=== PATIENT | male | born 1950 | race Hispanic/Latino ===

== ENCOUNTER → 2018-11-17 | Outpatient (CLI) | payer OTHER | END | disposition home or self-care (01) | LOC: OIH 11-05 09:17 | PROVIDERS: ATTEND Internal Medicine | DX: I10 Essential (primary) hypertension (principal); I70.0 Atherosclerosis of aorta; K44.9 Diaphragmatic hernia without obstruction or gangrene | CPT/HCPCS: 71046 ==

== ENCOUNTER → 2019-06-15 | Outpatient (CLI) | payer OTHER | END | disposition home or self-care (01) | LOC: OIH 11:08 | PROVIDERS: ATTEND Internal Medicine | DX: K44.9 Diaphragmatic hernia without obstruction or gangrene (principal) | CPT/HCPCS: 71046 ==

== ENCOUNTER → 2020-08-19 | Outpatient (CLI) | payer OTHER | END | disposition home or self-care (01) | LOC: RAH 12:26 | PROVIDERS: ATTEND Internal Medicine | DX: K44.9 Diaphragmatic hernia without obstruction or gangrene (principal); J98.11 Atelectasis; R16.0 Hepatomegaly, not elsewhere classified; N20.0 Calculus of kidney; K42.9 Umbilical hernia without obstruction or gangrene; M47.814 Spondylosis without myelopathy or radiculopathy, thoracic region; M47.816 Spondylosis without myelopathy or radiculopathy, lumbar region; R10.9 Unspecified abdominal pain; Z90.49 Acquired absence of other specified parts of digestive tract | CPT/HCPCS: 74176 ==

== ENCOUNTER 2020-11-06 11:19 | Emergency (ER) | payer OTHER ==
[2020-11-06] MEDS ORDERED: HYDROCODONE/ACETAMINOPHEN 10/325 MG TAB ONE (12:47)
== END 2020-11-06 14:37 | disposition home or self-care (01) ==
LOC: EDH 11:19
DX: M54.41 Lumbago with sciatica, right side (principal); E11.9 Type 2 diabetes mellitus without complications; E78.00 Pure hypercholesterolemia, unspecified; Z72.0 Tobacco use
CPT/HCPCS: 72100

== ENCOUNTER 2020-12-09 20:21 | Emergency (ER) | payer OTHER ==
[2020-12-09] MEDS ORDERED: KETOROLAC 30MG VIAL (30MG/ML) ONE (21:19)
[2020-12-09] MEDS ORDERED: ORPHENADRINE CITRATE 30 MG/ML ML ONE (21:19)
[2020-12-09] MEDS ORDERED: LIDOCAINE 5% TOPICAL PATCH TP ONE (21:19)
== END 2020-12-09 21:51 | disposition home or self-care (01) ==
LOC: EDH 20:21
DX: M54.5 Low back pain (principal); M62.830 Muscle spasm of back; M54.30 Sciatica, unspecified side; E78.00 Pure hypercholesterolemia, unspecified; E11.9 Type 2 diabetes mellitus without complications
CPT/HCPCS: 96372 ×2; 99284; J1885; J2360

== ENCOUNTER → 2021-03-20 | Outpatient (CLI) | payer OTHER ==
[2021-03-20 08:36] LABS: BASOPHILS % (AUTO) 0.6 % (0.0-5.0); EOSINOPHILS % (AUTO) 3.8 % (0.0-8.0); HEMATOCRIT 39.8 % (42-54); LYMPHOCYTES % (AUTO) 26.3 % (21.0-51.0); MEAN CORPUSCULAR HGB CONC 32.9 g/dL (32.0-36.0); MEAN CORPUSCULAR VOLUME 97.3 fL (79-99); MONOCYTES % (AUTO) 9.1 % (3.0-13.0); NEUTROPHILS % (AUTO) 59.8 % (40.0-77.0); PLATELET COUNT (AUTO) 144 K/uL (130-400); RED BLOOD CELL COUNT(AUTO) 4.09 MIL/uL (4.50-6.20); RED CELL DISTRIBUTION WIDTH 13.2 % (11.0-15.5); WHITE BLOOD COUNT (AUTO) 7.8 K/uL (4.8-10.8)
[2021-03-20 08:46] LABS: INR 1.04 (0.85-1.15); PROTHROMBIN TIME 11.3 SEC (9.6-11.6)
[2021-03-20 09:06] LABS: ALBUMIN 3.6 g/dL (3.5-5.0); BILIRUBIN,TOTAL 0.5 mg/dL (0.2-1.0); CREATININE 0.7 mg/dL (0.5-1.5); POTASSIUM 4.9 mmol/L (3.5-5.1); TOTAL PROTEIN, SERUM 7.4 g/dL (6.0-8.3)
== END | disposition home or self-care (01) ==
LOC: LAB 10:00
PROVIDERS: ATTEND Internal Medicine Gastroenterology
DX: K74.69 Other cirrhosis of liver (principal)
CPT/HCPCS: 36415; 80053; 85025; 85610

== ENCOUNTER → 2021-04-03 | Outpatient (CLI) | payer OTHER ==
[~2021-04-03] MED LIST: IOHEXOL-350 75 ML VIAL IV ONE
== END | disposition home or self-care (01) ==
LOC: RAH 09:12
PROVIDERS: ATTEND Internal Medicine Gastroenterology
DX: K74.69 Other cirrhosis of liver (principal); R77.2 Abnormality of alphafetoprotein; Z90.49 Acquired absence of other specified parts of digestive tract; K44.9 Diaphragmatic hernia without obstruction or gangrene
CPT/HCPCS: 74170; Q9967

== ENCOUNTER 2021-08-18 09:40 | Inpatient (IN) | payer OTHER ==
[2021-08-18] VITALS (17 sets, daily range): BP systolic 140–181; BP diastolic 67–99
[~2021-08-18] VITALS: Ht 165.1 cm; Wt 64.7 kg
[2021-08-18 10:42] LABS: BASOPHILS % (AUTO) 0.3 % (0.0-5.0); EOSINOPHILS % (AUTO) 0.8 % (0.0-8.0); HEMATOCRIT 35.7 % (42-54); LYMPHOCYTES % (AUTO) 12.5 % (21.0-51.0); MEAN CORPUSCULAR HEMOGLOBIN 31.9 pg (27.0-33.0); MEAN CORPUSCULAR HGB CONC 34.2 g/dL (32.0-36.0); MEAN CORPUSCULAR VOLUME 93.2 fL (79-99); MONOCYTES % (AUTO) 11.3 % (3.0-13.0); NEUTROPHILS % (AUTO) 74.5 % (40.0-77.0); PLATELET COUNT (AUTO) 160 K/uL (130-400); RED BLOOD CELL COUNT(AUTO) 3.83 MIL/uL (4.50-6.20); RED CELL DISTRIBUTION WIDTH 12.8 % (11.0-15.5); WHITE BLOOD COUNT (AUTO) 10.7 K/uL (4.8-10.8)
[2021-08-18 11:04] LABS: ALBUMIN 3.6 g/dL (3.5-5.0); BILIRUBIN,TOTAL 0.6 mg/dL (0.2-1.0); CREATININE 0.9 mg/dL (0.5-1.5); POTASSIUM 4.8 mmol/L (3.5-5.1); TOTAL PROTEIN, SERUM 7.3 g/dL (6.0-8.3)
[2021-08-18] MEDS ORDERED: 0.9%NACL 50ML 50 ML IV ONE (12:18)
[2021-08-18] MEDS: ZOSYN 3.375GM +NS 50ML IV SCH ×2 (12:29→14:39)
[2021-08-18] MEDS ORDERED: ACETAMINOPHEN 325 MG TAB PO PRN ×2 (13:30)
[2021-08-18] MEDS ORDERED: VANCOMYCIN PROTOCOL PER PHARMACY IV SCH (14:00)
[2021-08-18 14:21] LABS: HEMOGLOBIN A1C 7.3 % (4.0-6.0)
[2021-08-18] MEDS: CEFEPIME HCL 2 GM VIAL IVP SCH ×2 (14:52→22:01)
[2021-08-18] MEDS: METRONIDAZOLE 500MG/100ML BAG 100 ML IVPB SCH ×2 (14:52→22:01)
[2021-08-18] MEDS: VANCOMYCIN 1G/250ML KIT 250 ML IV SCH (15:24)
[2021-08-18] MEDS: INSULIN HUMULIN R 100 UNIT/ML 3ML SQ SCH ×2 (16:30→20:17)
[2021-08-18] MEDS ORDERED: KETOROLAC 15MG/ML VIAL (15MG/ML) IV SCH (16:30)
[2021-08-18] MEDS ORDERED: BUPIVACAINE/PF 0.5% 30ML VIAL ONE (18:40)
[2021-08-18] MEDS ORDERED: LIDOCAINE HCL 1% 20 ML VIAL ONE (18:40)
[2021-08-18] MEDS ORDERED: MIDAZOLAM HCL 1 MG/ML 2ML VIAL ONE (18:50)
[2021-08-18] MEDS ORDERED: FENTANYL CITRATE PF 50 MCG/1 ML 2ML VIAL ONE (18:50)
[2021-08-18] MEDS: FAMOTIDINE 20MG VIAL IV SCH (22:01)
[2021-08-18] MEDS: INSULIN GLARGINE 100 UNITS/ML 10 ML VIAL SQ SCH (22:08)
[2021-08-19] MEDS ORDERED: 0.9% NACL 250ML 250 ML ONE (02:30)
[2021-08-19] MEDS: VANCOMYCIN 1G/250ML KIT 250 ML IV SCH ×2 (02:51→14:31)
[2021-08-19 03:38] VITALS: BP 142/63
[2021-08-19] MEDS: ZOSYN 3.375GM +NS 50ML IV SCH (04:42)
[2021-08-19 05:06] LABS: HEMATOCRIT 34.9 % (42-54); MEAN CORPUSCULAR HEMOGLOBIN 32.2 pg (27.0-33.0); MEAN CORPUSCULAR HGB CONC 35.2 g/dL (32.0-36.0); MEAN CORPUSCULAR VOLUME 91.4 fL (79-99); RED BLOOD CELL COUNT(AUTO) 3.82 MIL/uL (4.50-6.20); RED CELL DISTRIBUTION WIDTH 12.7 % (11.0-15.5); WHITE BLOOD COUNT (AUTO) 10.2 K/uL (4.8-10.8)
[2021-08-19] MEDS: CEFEPIME HCL 2 GM VIAL IVP SCH ×3 (05:18→22:43)
[2021-08-19] MEDS: METRONIDAZOLE 500MG/100ML BAG 100 ML IVPB SCH ×3 (05:18→22:44)
[2021-08-19 05:28] LABS: CREATININE 0.8 mg/dL (0.5-1.5); POTASSIUM 4.3 mmol/L (3.5-5.1)
[2021-08-19 07:20] VITALS: BP 175/85
[2021-08-19] MEDS: INSULIN HUMULIN R 100 UNIT/ML 3ML SQ SCH ×4 (07:30→21:00)
[2021-08-19] MEDS: FAMOTIDINE 20MG VIAL IV SCH ×2 (09:49→22:42)
[2021-08-19] MEDS: HYDRALAZINE 20MG/ML VIAL IV PRN (09:49)
[2021-08-19] MEDS: GABAPENTIN 300 MG CAPSULE PO SCH ×3 (09:50→22:41)
[2021-08-19] MEDS: ACETAMINOPHEN WITH CODEINE 1 TAB TAB PO PRN (09:51)
[2021-08-19] MEDS: ENOXAPARIN SODIUM 40 MG/0.4 ML SYRINGE SQ SCH (09:54)
[2021-08-19 11:15] VITALS: BP 143/74
[2021-08-19] MEDS: MORPHINE 2 MG SYG IVP PRN (11:22)
[2021-08-19] MEDS ORDERED: HYDROXYZINE 25 MG TABLET PO PRN (14:00)
[2021-08-19 15:10] VITALS: BP 156/75
[2021-08-19 19:56] VITALS: BP 123/78
[2021-08-19] MEDS: MIRTAZAPINE 15 MG TABLET PO SCH (22:41)
[2021-08-19] MEDS: INSULIN GLARGINE 100 UNITS/ML 10 ML VIAL SQ SCH (23:05)
[2021-08-19 23:29] LABS: AMPHET/METH SCREEN,URINE NEGATIVE (NEGATIVE); BARBITURATE SCREEN, URINE NEGATIVE (NEGATIVE); BENZODIAZEPINES SCREEN,URINE POSITIVE (NEGATIVE); CANNABINOID SCREEN,URINE POSITIVE (NEGATIVE); COCAINE SCREEN,URINE NEGATIVE (NEGATIVE); OPIATE SCREEN,URINE POSITIVE (NEGATIVE); PHENCYCLIDINE SCREEN,URINE NEGATIVE (NEGATIVE)
[2021-08-19 23:45] VITALS: BP 167/81
[2021-08-20] VITALS (8 sets, daily range): BP systolic 130–185; BP diastolic 62–91
[2021-08-20] MEDS ORDERED: 0.9% NACL 250ML 250 ML ONE (02:03)
[2021-08-20] MEDS: VANCOMYCIN 1G/250ML KIT 250 ML IV SCH ×2 (02:08→14:53)
[2021-08-20] MEDS: MORPHINE 2 MG SYG IVP PRN ×3 (02:14→11:00)
[2021-08-20 04:35] LABS: HEMATOCRIT 35.3 % (42-54); MEAN CORPUSCULAR HEMOGLOBIN 31.9 pg (27.0-33.0); MEAN CORPUSCULAR HGB CONC 34.6 g/dL (32.0-36.0); MEAN CORPUSCULAR VOLUME 92.4 fL (79-99); RED BLOOD CELL COUNT(AUTO) 3.82 MIL/uL (4.50-6.20); RED CELL DISTRIBUTION WIDTH 12.7 % (11.0-15.5); WHITE BLOOD COUNT (AUTO) 9.3 K/uL (4.8-10.8)
[2021-08-20 04:44] LABS: CREATININE 0.8 mg/dL (0.5-1.5); POTASSIUM 3.2 mmol/L (3.5-5.1)
[2021-08-20] MEDS: ACETAMINOPHEN WITH CODEINE 1 TAB TAB PO PRN ×3 (05:23→17:27)
[2021-08-20] MEDS: CEFEPIME HCL 2 GM VIAL IVP SCH ×3 (05:23→21:48)
[2021-08-20] MEDS: METRONIDAZOLE 500MG/100ML BAG 100 ML IVPB SCH ×3 (05:23→21:54)
[2021-08-20] MEDS: INSULIN HUMULIN R 100 UNIT/ML 3ML SQ SCH ×4 (06:01→21:00)
[2021-08-20] MEDS: VENLAFAXINE HCL XR 37.5 MG CAP PO SCH (08:15)
[2021-08-20] MEDS: FAMOTIDINE 20MG VIAL IV SCH ×2 (08:15→21:48)
[2021-08-20] MEDS: HYDRALAZINE 20MG/ML VIAL IV PRN ×2 (08:16→17:28)
[2021-08-20] MEDS: ENOXAPARIN SODIUM 40 MG/0.4 ML SYRINGE SQ SCH (08:16)
[2021-08-20] MEDS: GABAPENTIN 300 MG CAPSULE PO SCH ×3 (08:16→21:48)
[2021-08-20] MEDS ORDERED: MORPHINE 2 MG SYG IM SCH (11:00)
[2021-08-20] MEDS ORDERED: GABA600T10 PO (16:26)
[2021-08-20] MEDS ORDERED: ROSU5TAB12 PO (16:29)
[2021-08-20] MEDS ORDERED: AMLODIPINE 5 MG TAB PO ONE (16:30)
[2021-08-20] MEDS ORDERED: INS7030 SQ (16:40)
[2021-08-20] MEDS ORDERED: DULO20CA18 PO (16:41)
[2021-08-20] MEDS ORDERED: LACTULOSE 20 GM/30 ML UDCUP PO PRN (18:00)
[2021-08-20] MEDS: MIRTAZAPINE 15 MG TABLET PO SCH (21:48)
[2021-08-20] MEDS: INSULIN GLARGINE 100 UNITS/ML 10 ML VIAL SQ SCH (22:08)
[2021-08-21] MEDS ORDERED: 0.9% NACL 250ML 250 ML ONE ×2 (02:18→14:18)
[2021-08-21] MEDS: VANCOMYCIN 1G/250ML KIT 250 ML IV SCH ×2 (02:44→14:25)
[2021-08-21 04:05] VITALS: BP 142/76
[2021-08-21 04:39] LABS: HEMATOCRIT 35.9 % (42-54); MEAN CORPUSCULAR HEMOGLOBIN 31.6 pg (27.0-33.0); MEAN CORPUSCULAR HGB CONC 34.5 g/dL (32.0-36.0); MEAN CORPUSCULAR VOLUME 91.6 fL (79-99); RED BLOOD CELL COUNT(AUTO) 3.92 MIL/uL (4.50-6.20); RED CELL DISTRIBUTION WIDTH 12.9 % (11.0-15.5); WHITE BLOOD COUNT (AUTO) 9.9 K/uL (4.8-10.8)
[2021-08-21 04:52] LABS: CREATININE 0.7 mg/dL (0.5-1.5); POTASSIUM 3.1 mmol/L (3.5-5.1)
[2021-08-21 05:37] LABS: BASOPHILS % (AUTO) 0.5 % (0.0-5.0); EOSINOPHILS % (AUTO) 0.6 % (0.0-8.0); HEMATOCRIT 36.8 % (42-54); LYMPHOCYTES % (AUTO) 15.4 % (21.0-51.0); MEAN CORPUSCULAR VOLUME 94.1 fL (79-99); MONOCYTES % (AUTO) 9.4 % (3.0-13.0); NEUTROPHILS % (AUTO) 73.5 % (40.0-77.0); PLATELET COUNT (AUTO) 188 K/uL (130-400); RED BLOOD CELL COUNT(AUTO) 3.91 MIL/uL (4.50-6.20); WHITE BLOOD COUNT (AUTO) 9.9 K/uL (4.8-10.8)
[2021-08-21] MEDS: MORPHINE 2 MG SYG IVP PRN (05:50)
[2021-08-21] MEDS: METRONIDAZOLE 500MG/100ML BAG 100 ML IVPB SCH ×3 (06:38→20:31)
[2021-08-21] MEDS: CEFEPIME HCL 2 GM VIAL IVP SCH ×3 (06:38→20:32)
[2021-08-21] MEDS: INSULIN HUMULIN R 100 UNIT/ML 3ML SQ SCH ×4 (06:39→20:26)
[2021-08-21] MEDS: ONDANSETRON 4MG INJ IV PRN (07:07)
[2021-08-21 07:56] VITALS: BP 157/87
[2021-08-21] MEDS ORDERED: MORPHINE 4 MG SYG IV PRN (09:00)
[2021-08-21] MEDS: VENLAFAXINE HCL XR 37.5 MG CAP PO SCH (09:33)
[2021-08-21] MEDS: AMLODIPINE 5 MG TAB PO SCH (09:34)
[2021-08-21] MEDS: FAMOTIDINE 20MG VIAL IV SCH (09:34)
[2021-08-21] MEDS: ENOXAPARIN SODIUM 40 MG/0.4 ML SYRINGE SQ SCH (09:34)
[2021-08-21] MEDS: GABAPENTIN 300 MG CAPSULE PO SCH ×3 (09:34→20:26)
[2021-08-21 10:58] VITALS: BP 127/64
[2021-08-21] MEDS ORDERED: LISINOPRIL 10 MG TABLET PO SCH (11:00)
[2021-08-21] MEDS: ACETAMINOPHEN WITH CODEINE 1 TAB TAB PO PRN ×3 (11:04→20:27)
[2021-08-21] MEDS: LISINOPRIL 10 MG TABLET PO SCH (11:11)
[2021-08-21] MEDS: KCL 20 MEQ ERTAB PO SCH (11:12)
[2021-08-21] MEDS ORDERED: IOHEXOL 350 MG/ML 100ML INFUS..BTL IV ONE (12:02)
[2021-08-21] MEDS ORDERED: IOHEXOL-350 50ML VIAL IV ONE (12:02)
[2021-08-21 15:39] VITALS: BP 115/72
[2021-08-21] MEDS ORDERED: KCL 20 MEQ ERTAB PO SCH (16:00)
[2021-08-21 20:00] VITALS: BP 122/69
[2021-08-21] MEDS: FAMOTIDINE 20MG TAB PO SCH (20:25)
[2021-08-21] MEDS: MIRTAZAPINE 15 MG TABLET PO SCH (20:26)
[2021-08-21] MEDS: INSULIN GLARGINE 100 UNITS/ML 10 ML VIAL SQ SCH (20:31)
[2021-08-22] VITALS: BP 139/48
[2021-08-22] MEDS: VANCOMYCIN 1G/250ML KIT 250 ML IV SCH ×2 (02:49→15:24)
[2021-08-22 04:00] VITALS: BP 137/73
[2021-08-22 05:46] LABS: CREATININE 0.8 mg/dL (0.5-1.5); CRP QUANTITATIVE 4.6 mg/L (0.00-9.0); POTASSIUM 4.1 mmol/L (3.5-5.1)
[2021-08-22] MEDS: METRONIDAZOLE 500MG/100ML BAG 100 ML IVPB SCH ×3 (05:48→23:35)
[2021-08-22] MEDS: CEFEPIME HCL 2 GM VIAL IVP SCH ×3 (05:48→23:35)
[2021-08-22] MEDS: INSULIN HUMULIN R 100 UNIT/ML 3ML SQ SCH ×4 (06:34→20:27)
[2021-08-22] MEDS: ACETAMINOPHEN WITH CODEINE 1 TAB TAB PO PRN ×4 (06:35→20:35)
[2021-08-22] MEDS: LISINOPRIL 10 MG TABLET PO SCH (08:44)
[2021-08-22] MEDS: VENLAFAXINE HCL XR 37.5 MG CAP PO SCH (08:44)
[2021-08-22] MEDS: ATORVASTATIN 10 MG TABLET PO SCH (08:44)
[2021-08-22] MEDS: FAMOTIDINE 20MG TAB PO SCH ×2 (08:45→20:34)
[2021-08-22] MEDS: ENOXAPARIN SODIUM 40 MG/0.4 ML SYRINGE SQ SCH (08:45)
[2021-08-22] MEDS: GABAPENTIN 300 MG CAPSULE PO SCH ×3 (08:45→20:34)
[2021-08-22] MEDS: AMLODIPINE 5 MG TAB PO SCH (08:45)
[2021-08-22 09:33] VITALS: BP 141/76
[2021-08-22] MEDS: KCL 20 MEQ ERTAB PO SCH (11:00)
[2021-08-22 11:42] VITALS: BP 118/51
[2021-08-22] MEDS ORDERED: 0.9% NACL 250ML 250 ML ONE (15:23)
[2021-08-22 16:52] VITALS: BP 121/53
[2021-08-22 20:00] VITALS: BP 151/78
[2021-08-22] MEDS: MIRTAZAPINE 15 MG TABLET PO SCH (20:34)
[2021-08-22] MEDS: INSULIN GLARGINE 100 UNITS/ML 10 ML VIAL SQ SCH (20:44)
[2021-08-23] VITALS (8 sets, daily range): BP systolic 120–173; BP diastolic 66–88
[2021-08-23] MEDS ORDERED: 0.9% NACL 250ML 250 ML ONE (02:27)
[2021-08-23] MEDS: VANCOMYCIN 1G/250ML KIT 250 ML IV SCH ×2 (02:28→13:51)
[2021-08-23] MEDS: ACETAMINOPHEN WITH CODEINE 1 TAB TAB PO PRN ×2 (04:37→11:33)
[2021-08-23 05:07] LABS: BASOPHILS % (AUTO) 0.4 % (0.0-5.0); HEMATOCRIT 39.8 % (42-54); LYMPHOCYTES % (AUTO) 14.3 % (21.0-51.0); MEAN CORPUSCULAR HEMOGLOBIN 31.9 pg (27.0-33.0); MEAN CORPUSCULAR HGB CONC 34.4 g/dL (32.0-36.0); MEAN CORPUSCULAR VOLUME 92.6 fL (79-99); MONOCYTES % (AUTO) 7.8 % (3.0-13.0); NEUTROPHILS % (AUTO) 74.8 % (40.0-77.0); PLATELET COUNT (AUTO) 195 K/uL (130-400); WHITE BLOOD COUNT (AUTO) 9.1 K/uL (4.8-10.8)
[2021-08-23 05:25] LABS: % IRON SATURATION 20.5 % (30-44)
[2021-08-23 05:45] LABS: CREATININE 0.8 mg/dL (0.5-1.5); CRP QUANTITATIVE 3.9 mg/L (0.00-9.0); POTASSIUM 3.7 mmol/L (3.5-5.1); THYROID STIMULATING HORMONE 1.17 uIU/mL (0.36-3.74)
[2021-08-23 06:07] LABS: ERYTHROCYTE SEDIMENTATION RATE 45 MM/HR (0-20)
[2021-08-23] MEDS: CEFEPIME HCL 2 GM VIAL IVP SCH ×3 (06:20→22:00)
[2021-08-23] MEDS: METRONIDAZOLE 500MG/100ML BAG 100 ML IVPB SCH ×3 (06:20→22:01)
[2021-08-23] MEDS: INSULIN HUMULIN R 100 UNIT/ML 3ML SQ SCH ×4 (06:28→20:32)
[2021-08-23] MEDS: ONDANSETRON 4MG INJ IV PRN (08:11)
[2021-08-23] MEDS: HYDRALAZINE 20MG/ML VIAL IV PRN (08:38)
[2021-08-23 08:45] LABS: INR 1.11 (0.85-1.15)
[2021-08-23 08:46] LABS: PARTIAL THROMBOPLASTIN TIME 29.7 SEC (26.3-35.5)
[2021-08-23] MEDS: ATORVASTATIN 10 MG TABLET PO SCH (09:56)
[2021-08-23] MEDS: GABAPENTIN 300 MG CAPSULE PO SCH ×3 (09:56→20:21)
[2021-08-23] MEDS: FAMOTIDINE 20MG TAB PO SCH ×2 (09:56→20:18)
[2021-08-23] MEDS: VENLAFAXINE HCL XR 37.5 MG CAP PO SCH (09:56)
[2021-08-23] MEDS: ENOXAPARIN SODIUM 40 MG/0.4 ML SYRINGE SQ SCH (09:57)
[2021-08-23] MEDS: LISINOPRIL 10 MG TABLET PO SCH (10:05)
[2021-08-23] MEDS: KCL 20 MEQ ERTAB PO SCH (11:00)
[2021-08-23] MEDS: AMLODIPINE 5 MG TAB PO SCH (13:00)
[2021-08-23] MEDS: MIRTAZAPINE 15 MG TABLET PO SCH (20:18)
[2021-08-23] MEDS: ASPIRIN 81MG CHEW TAB PO SCH (20:18)
[2021-08-23] MEDS: INSULIN GLARGINE 100 UNITS/ML 10 ML VIAL SQ SCH (20:32)
[2021-08-24] VITALS (14 sets, daily range): BP systolic 124–169; BP diastolic 65–89
[2021-08-24] MEDS ORDERED: 0.9% NACL 250ML 250 ML ONE (03:00)
[2021-08-24] MEDS: VANCOMYCIN 1G/250ML KIT 250 ML IV SCH ×2 (03:17→14:17)
[2021-08-24] MEDS: METRONIDAZOLE 500MG/100ML BAG 100 ML IVPB SCH ×3 (06:09→23:50)
[2021-08-24] MEDS: CEFEPIME HCL 2 GM VIAL IVP SCH ×3 (06:09→22:32)
[2021-08-24] MEDS: INSULIN HUMULIN R 100 UNIT/ML 3ML SQ SCH ×4 (06:17→21:00)
[2021-08-24 06:45] LABS: BASOPHILS % (AUTO) 0.5 % (0.0-5.0); EOSINOPHILS % (AUTO) 0.8 % (0.0-8.0); HEMATOCRIT 37.5 % (42-54); MEAN CORPUSCULAR HEMOGLOBIN 31.6 pg (27.0-33.0); MEAN CORPUSCULAR HGB CONC 34.4 g/dL (32.0-36.0); MEAN CORPUSCULAR VOLUME 91.9 fL (79-99); NEUTROPHILS % (AUTO) 71.1 % (40.0-77.0); PLATELET COUNT (AUTO) 185 K/uL (130-400); RED BLOOD CELL COUNT(AUTO) 4.08 MIL/uL (4.50-6.20); RED CELL DISTRIBUTION WIDTH 12.8 % (11.0-15.5); WHITE BLOOD COUNT (AUTO) 9.5 K/uL (4.8-10.8)
[2021-08-24 06:56] LABS: CREATININE 0.7 mg/dL (0.5-1.5); POTASSIUM 3.7 mmol/L (3.5-5.1)
[2021-08-24] MEDS: ACETAMINOPHEN WITH CODEINE 1 TAB TAB PO PRN (07:52)
[2021-08-24] MEDS: AMLODIPINE 5 MG TAB PO SCH (08:27)
[2021-08-24] MEDS: FAMOTIDINE 20MG TAB PO SCH ×2 (09:00→22:32)
[2021-08-24] MEDS: ENOXAPARIN SODIUM 40 MG/0.4 ML SYRINGE SQ SCH (09:00)
[2021-08-24] MEDS: LISINOPRIL 10 MG TABLET PO SCH (09:00)
[2021-08-24] MEDS: ASPIRIN 81MG CHEW TAB PO SCH (09:00)
[2021-08-24] MEDS: VENLAFAXINE HCL XR 37.5 MG CAP PO SCH (09:00)
[2021-08-24] MEDS: ATORVASTATIN 10 MG TABLET PO SCH (09:00)
[2021-08-24] MEDS: GABAPENTIN 300 MG CAPSULE PO SCH ×3 (10:44→22:32)
[2021-08-24] MEDS ORDERED: HEPARIN 10,000 UNIT/10ML (1,000 UNIT/ML) VIAL ONE (10:54)
[2021-08-24] MEDS ORDERED: LIDOCAINE HCL 400MG/20ML VIAL ONE (10:54)
[2021-08-24] MEDS ORDERED: IOHEXOL 350 MG/ML 100ML INFUS..BTL IV ONE (10:54)
[2021-08-24] MEDS ORDERED: IODIXANOL 320 MG/ML 100 ML VIAL ONE (10:55)
[2021-08-24] MEDS ORDERED: NITROGLYCERIN 50MG VIAL IV ONE (10:55)
[2021-08-24] MEDS: KCL 20 MEQ ERTAB PO SCH (11:00)
[2021-08-24] MEDS ORDERED: FENTANYL CITRATE PF 50 MCG/1 ML 2ML VIAL ONE ×2 (11:21→13:05)
[2021-08-24] MEDS ORDERED: MIDAZOLAM HCL 1 MG/ML 2ML VIAL ONE (11:21)
[2021-08-24] MEDS ORDERED: CLOPIDOGREL 300MG TAB ONE (12:06)
[2021-08-24] MEDS ORDERED: ASPIRIN 325MG EC TAB PO ONE (12:07)
[2021-08-24] MEDS ORDERED: 0.9%NACL 1000ML 1,000 ML IV SCH (13:30)
[2021-08-24] MEDS: HYDRALAZINE 20MG/ML VIAL IV PRN (14:24)
[2021-08-24] MEDS: MIRTAZAPINE 15 MG TABLET PO SCH (22:32)
[2021-08-24] MEDS: INSULIN GLARGINE 100 UNITS/ML 10 ML VIAL SQ SCH (22:43)
[2021-08-25] MEDS ORDERED: 0.9% NACL 250ML 250 ML ONE ×2 (03:23→14:58)
[2021-08-25] MEDS: VANCOMYCIN 1G/250ML KIT 250 ML IV SCH ×2 (03:26→15:01)
[2021-08-25 04:52] LABS: BASOPHILS % (AUTO) 0.3 % (0.0-5.0); HEMATOCRIT 35.7 % (42-54); LYMPHOCYTES % (AUTO) 20.8 % (21.0-51.0); MEAN CORPUSCULAR HEMOGLOBIN 31.6 pg (27.0-33.0); MEAN CORPUSCULAR HGB CONC 34.2 g/dL (32.0-36.0); MEAN CORPUSCULAR VOLUME 92.5 fL (79-99); MONOCYTES % (AUTO) 9.3 % (3.0-13.0); NEUTROPHILS % (AUTO) 67.9 % (40.0-77.0); PLATELET COUNT (AUTO) 163 K/uL (130-400); RED BLOOD CELL COUNT(AUTO) 3.86 MIL/uL (4.50-6.20); WHITE BLOOD COUNT (AUTO) 8.8 K/uL (4.8-10.8)
[2021-08-25 05:19] VITALS: BP 159/88
[2021-08-25] MEDS: CEFEPIME HCL 2 GM VIAL IVP SCH ×2 (05:50→15:01)
[2021-08-25] MEDS: METRONIDAZOLE 500MG/100ML BAG 100 ML IVPB SCH ×2 (06:29→17:20)
[2021-08-25] MEDS: INSULIN HUMULIN R 100 UNIT/ML 3ML SQ SCH ×3 (07:30→16:30)
[2021-08-25 08:00] VITALS: BP 133/79
[2021-08-25] MEDS ORDERED: CLOPIDOGREL 75MG TAB PO SCH (09:00)
[2021-08-25] MEDS: VENLAFAXINE HCL XR 37.5 MG CAP PO SCH (10:03)
[2021-08-25] MEDS: ACETAMINOPHEN WITH CODEINE 1 TAB TAB PO PRN (10:04)
[2021-08-25] MEDS: GABAPENTIN 300 MG CAPSULE PO SCH ×2 (10:04→15:01)
[2021-08-25] MEDS: FAMOTIDINE 20MG TAB PO SCH (10:05)
[2021-08-25] MEDS: LISINOPRIL 10 MG TABLET PO SCH (10:05)
[2021-08-25] MEDS: ATORVASTATIN 10 MG TABLET PO SCH (10:05)
[2021-08-25] MEDS: ASPIRIN 81MG CHEW TAB PO SCH (10:05)
[2021-08-25] MEDS: AMLODIPINE 5 MG TAB PO SCH (10:05)
[2021-08-25] MEDS: ENOXAPARIN SODIUM 40 MG/0.4 ML SYRINGE SQ SCH (10:06)
[2021-08-25] MEDS: KCL 20 MEQ ERTAB PO SCH (11:00)
[2021-08-25 12:00] VITALS: BP 114/69
[2021-08-25 16:00] VITALS: BP 132/76
== END 2021-08-25 18:45 | DRG 271 ==
LOC: EDH 09:40 → EDHIP 13:30 → 3BH 15:36
PROVIDERS: ADMIT Internal Medicine; ATTEND Internal Medicine
PROC: 0LBW0ZZ Excision of Left Foot Tendon, Open Approach (ICD-10-PCS; 2021-08-18)
PROC: 0Y9M0ZZ Drainage of Right Foot, Open Approach (ICD-10-PCS; 2021-08-18)
PROC: 04CM3ZZ Extirpation of Matter from Right Popliteal Artery, Percutaneous Approach (ICD-10-PCS; principal; 2021-08-24)
PROC: 047T3ZZ Dilation of Right Peroneal Artery, Percutaneous Approach (ICD-10-PCS; 2021-08-24)
PROC: 047R3ZZ Dilation of Right Posterior Tibial Artery, Percutaneous Approach (ICD-10-PCS; 2021-08-24)
PROC: B4101ZZ Fluoroscopy of Abdominal Aorta using Low Osmolar Contrast (ICD-10-PCS; 2021-08-24)
PROC: B41J1ZZ Fluoroscopy of Other Lower Arteries using Low Osmolar Contrast (ICD-10-PCS; 2021-08-24)
PROC: 04CR3ZZ Extirpation of Matter from Right Posterior Tibial Artery, Percutaneous Approach (ICD-10-PCS; 2021-08-24)
DX: E11.51 Type 2 diabetes mellitus with diabetic peripheral angiopathy without gangrene (principal); L02.611 Cutaneous abscess of right foot; L03.115 Cellulitis of right lower limb; F32.1 Major depressive disorder, single episode, moderate; M86.8X7 Other osteomyelitis, ankle and foot; I70.201 Unspecified atherosclerosis of native arteries of extremities, right leg; E11.621 Type 2 diabetes mellitus with foot ulcer; B02.9 Zoster without complications; L97.529 Non-pressure chronic ulcer of other part of left foot with unspecified severity; L97.519 Non-pressure chronic ulcer of other part of right foot with unspecified severity; B96.1 Klebsiella pneumoniae [K. pneumoniae] as the cause of diseases classified elsewhere; F41.9 Anxiety disorder, unspecified; Z20.822 Contact with and (suspected) exposure to COVID-19; M21.071 Valgus deformity, not elsewhere classified, right ankle; I10 Essential (primary) hypertension; E78.5 Hyperlipidemia, unspecified; E11.69 Type 2 diabetes mellitus with other specified complication; M77.9 Enthesopathy, unspecified; E87.6 Hypokalemia; R53.81 Other malaise; L03.032 Cellulitis of left toe; E66.9 Obesity, unspecified; Z68.23 Body mass index [BMI] 23.0-23.9, adult; Z72.0 Tobacco use; Z79.4 Long term (current) use of insulin; Z90.49 Acquired absence of other specified parts of digestive tract; Z86.19 Personal history of other infectious and parasitic diseases; Z87.828 Personal history of other (healed) physical injury and trauma; Z83.3 Family history of diabetes mellitus; Z82.49 Family history of ischemic heart disease and other diseases of the circulatory system
CPT/HCPCS: 36415; 37228; 37229; 73630; 73700; 75635; 75716; 75774; 80048; 80053; 80061; 80202; 80305; 82550; 82607; 82728; 82746; 82948; 83036; 83540; 83550; 83605; 84145; 84443; 85025; 85027; 85045; 85347; 85610; 85651; 85730; 86140; 87040; 87070; 87076; 87077; 87186; 87205; 87635; 93925; 99156; 99157; C1769; C1893; C1894; G0378; J0360; J0692; J1644; J1650; J1815; J1885; J2250; J2405; J2543; J3010; J3370; J3490; J7030; J7050; Q9967

== ENCOUNTER 2022-02-13 09:51 | Emergency (ER) | payer OTHER ==
[~2022-02-13] VITALS: Ht 167.6 cm; Wt 63.5 kg
[~2022-02-13 09:51] MED LIST changes: +GABA600T10 PO; -IOHEXOL-350 75 ML VIAL IV ONE
[2022-02-13 09:53] VITALS: BP 179/89
== END 2022-02-13 10:08 | disposition left against medical advice (07) ==
LOC: EDH 09:51
DX: I10 Essential (primary) hypertension (principal); Z53.21 Procedure and treatment not carried out due to patient leaving prior to being seen by health care provider
CPT/HCPCS: 93005

== ENCOUNTER 2022-04-12 18:31 | Inpatient (IN) | payer OTHER ==
[~2022-04-12] VITALS: Ht 165.1 cm; Wt 62.6 kg
[2022-04-12] MEDS ORDERED: MORPHINE 2 MG SYG IV PRN (19:30)
[2022-04-12] MEDS ORDERED: ONDANSETRON 4MG INJ IV PRN (19:30)
[2022-04-12] MEDS ORDERED: 0.9%NACL 1000ML 1,000 ML IV SCH ×2 (19:30)
[2022-04-12] MEDS ORDERED: ACETAMINOPHEN 325 MG TAB PO PRN (19:30)
[2022-04-12 19:46] LABS: BASOPHILS % (AUTO) 0.4 % (0.0-5.0); EOSINOPHILS % (AUTO) 4.7 % (0.0-8.0); HEMATOCRIT 29.9 % (42-54); LYMPHOCYTES % (AUTO) 33.2 % (21.0-51.0); MEAN CORPUSCULAR HEMOGLOBIN 31.8 pg (27.0-33.0); MEAN CORPUSCULAR HGB CONC 34.1 g/dL (32.0-36.0); MEAN CORPUSCULAR VOLUME 93.1 fL (79-99); MONOCYTES % (AUTO) 9.1 % (3.0-13.0); NEUTROPHILS % (AUTO) 52.2 % (40.0-77.0); PLATELET COUNT (AUTO) 131 K/uL (130-400); RED BLOOD CELL COUNT(AUTO) 3.21 MIL/uL (4.50-6.20); RED CELL DISTRIBUTION WIDTH 13.7 % (11.0-15.5)
[2022-04-12 19:56] LABS: PROTHROMBIN TIME 10.9 SEC (9.6-11.6)
[2022-04-12 19:58] LABS: PARTIAL THROMBOPLASTIN TIME 25.5 SEC (26.3-35.5)
[2022-04-12 20:03] LABS: ALBUMIN 3.5 g/dL (3.5-5.0); CREATININE 1.2 mg/dL (0.5-1.5); TOTAL PROTEIN, SERUM 6.7 g/dL (6.0-8.3)
[2022-04-12 20:05] LABS: B-TYPE NATRIURETIC PEPTIDE 77 pg/mL (0-100)
[2022-04-12] MEDS: HEPARIN 5,000 UNIT VIAL SQ SCH (20:23)
[2022-04-12] MEDS: INSULIN HUMULIN R 100 UNIT/ML 3ML SQ SCH (20:24)
[2022-04-12 20:32] LABS: HEMOGLOBIN A1C 7.5 % (4.0-6.0)
[2022-04-12 21:14] VITALS: BP 161/76
[2022-04-12] MEDS: BISMUTH SUBSALICYLATE 525 MG/15 ML ML PO SCH (22:25)
[2022-04-12] MEDS ORDERED: GABA300C PO (23:56)
[2022-04-13] MEDS ORDERED: GUAIFENESIN-DM 200/20 MG 10 ML PO PRN (00:30)
[2022-04-13] MEDS ORDERED: CLONIDINE HCL 0.1 MG TABLET PO PRN (00:30)
[2022-04-13] MEDS ORDERED: LACTULOSE 20 GM/30 ML UDCUP PO PRN (00:30)
[2022-04-13] MEDS ORDERED: ZOLPIDEM TARTRATE 5 MG TAB PO PRN (00:30)
[2022-04-13] MEDS ORDERED: NITROGLYCERIN 0.4 MG SL TAB SL PRN (00:30)
[2022-04-13] MEDS ORDERED: DIPHENHYDRAMINE HCL 25 MG CAPSULE PO PRN (00:30)
[2022-04-13 00:39] VITALS: BP 167/108
[2022-04-13 01:13] VITALS: BP 154/81
[2022-04-13 04:50] VITALS: BP 160/59
[2022-04-13] MEDS ORDERED: LISI5TAB21 PO (04:50)
[2022-04-13] MEDS ORDERED: HUM10VIA SQ (04:50)
[2022-04-13] MEDS ORDERED: LIDO1ADH71 TP (04:50)
[2022-04-13] MEDS ORDERED: ROSU5TAB12 PO (04:50)
[2022-04-13] MEDS ORDERED: ASPI-1012 PO (04:50)
[2022-04-13] MEDS ORDERED: FURO20TA4 PO (04:50)
[2022-04-13] MEDS ORDERED: CHOL-9 PO (04:50)
[2022-04-13 05:20] LABS: HEMATOCRIT 31.4 % (42-54); MEAN CORPUSCULAR HEMOGLOBIN 31.5 pg (27.0-33.0); MEAN CORPUSCULAR HGB CONC 34.1 g/dL (32.0-36.0); MEAN CORPUSCULAR VOLUME 92.4 fL (79-99); RED BLOOD CELL COUNT(AUTO) 3.4 MIL/uL (4.50-6.20); RED CELL DISTRIBUTION WIDTH 13.2 % (11.0-15.5); WHITE BLOOD COUNT (AUTO) 6.3 K/uL (4.8-10.8)
[2022-04-13] MEDS: BISMUTH SUBSALICYLATE 525 MG/15 ML ML PO SCH (05:29)
[2022-04-13 05:41] LABS: ALBUMIN 3.1 g/dL (3.5-5.0); CREATININE 0.8 mg/dL (0.5-1.5); MAGNESIUM 1.7 mg/dL (1.80-2.40); PHOSPHORUS 2.8 mg/dL (2.5-4.9); POTASSIUM 3.7 mmol/L (3.5-5.1); TOTAL PROTEIN, SERUM 6.4 g/dL (6.0-8.3)
[2022-04-13] MEDS: HYDROCODONE/ACETAMINOPHEN 5/325 MG TAB PO PRN ×2 (05:43→10:28)
[2022-04-13] MEDS: INSULIN HUMULIN R 100 UNIT/ML 3ML SQ SCH ×2 (06:31→11:30)
[2022-04-13 07:21] VITALS: BP 150/82
[2022-04-13] MEDS ORDERED: FAMOTIDINE 20MG VIAL IV SCH (09:00)
[2022-04-13] MEDS ORDERED: GABAPENTIN 300 MG CAPSULE PO SCH (09:00)
[2022-04-13] MEDS: HEPARIN 5,000 UNIT VIAL SQ SCH (09:53)
[2022-04-13 12:22] VITALS: BP 187/91
[2022-04-14] MEDS ORDERED: BISMUTH SUBSALICYLATE 525 MG/15 ML ML PO PRN (01:00)
== END 2022-04-13 12:20 | disposition home or self-care (01) | DRG 392 ==
LOC: EDH 18:31 → EDHIP 19:04 → 3BH 21:25
PROVIDERS: ADMIT Internal Medicine; ATTEND Hospitalist
DX: K52.9 Noninfective gastroenteritis and colitis, unspecified (principal); E86.0 Dehydration; E11.621 Type 2 diabetes mellitus with foot ulcer; Z20.822 Contact with and (suspected) exposure to COVID-19; I95.9 Hypotension, unspecified; L97.529 Non-pressure chronic ulcer of other part of left foot with unspecified severity; Z87.891 Personal history of nicotine dependence; Z90.49 Acquired absence of other specified parts of digestive tract
CPT/HCPCS: 36415; 71045; 80053; 82948; 83036; 83605; 83735; 83880; 84100; 84145; 85025; 85027; 85610; 85730; 87040; 87635; 93005; G0378; J1644; J2405; J3490; J7030

== ENCOUNTER → 2022-08-09 | Outpatient (CLI) | payer OTHER ==
[~2022-08-09] MED LIST changes: +ASPI-1012 PO; +CHOL-9 PO; +FURO20TA4 PO; +GABA300C PO; -GABA600T10 PO; +HUM10VIA SQ; +LIDO1ADH71 TP; +LISI5TAB21 PO; +ROSU5TAB12 PO
== END | disposition home or self-care (01) ==
LOC: RAH 13:16
PROVIDERS: ATTEND Internal Medicine
DX: R10.9 Unspecified abdominal pain (principal); Z90.49 Acquired absence of other specified parts of digestive tract
CPT/HCPCS: 76700

== ENCOUNTER 2025-01-08 10:26 | Emergency (ER) | payer OTHER ==
[~2025-01-08] VITALS: Ht 165.1 cm; Wt 75.7 kg
[~2025-01-08 10:26] MED LIST changes: +CEPH500B PO; +PERM60CR4 TP; -ROSU5TAB12 PO; +ROSU5TAB51 PO
--- NOTE | 2025-01-08 10:45 | ERN ---
General Chief Complaint: Lower Extremity Pain/Injury Stated Complaint: LEFT LEG SWOLLEN Time Seen by MD: 10:27 Time Seen by Midlevel: 10:27 Source: patient History of Present Illness Initial Comments The patient is a 74-year-old male with a past medical history of type 2 diabetes and hypertension presenting to the emergency department with left lower extre mity swelling and a wound to his left great toe. The patient was at his primary care doctor's office today for a routine follow up and was referred to the emergency department after he was found with an open wound to the plantar aspect of his left great toe. 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 03/30/23 Cephalexin Monohydrate (Keflex) 500 Mg Cap, 500 MG PO QID for 10 Days, #40 CAP Prov:HEIDY ZHANG [employer]OLITION WORKER 03/30/23 Reported Medications Cholecalciferol (Vitamin D3) (Vitamin D3) 250 Mcg Tablet, 250 MCG PO DAILY, TAB 04/13/22 Rosuvastatin Calcium (Rosuvastatin Calcium) 5 Mg Tablet, 5 MG PO DAILY, TAB 04/13/22 Lisinopril (Lisinopril) 5 Mg Tablet, 5 MG PO DAILY, TAB 04/13/22 Lidocaine (Lidocaine Pain Relief) 1 Each Adh..patch, 1 EACH TP [id number], ADH.PATCH 04/13/22 Hum Insulin NPH/Reg Insulin Hm (Humulin 70-30 Vial) 100 Unit/1 Ml Vial, 0 SQ BID, VIAL 04/13/22 Furosemide (Furosemide) 20 Mg Tablet, 20 MG PO DAILY, TAB 04/13/22 Aspirin (ASPIRIN) 325 Mg Tablet, 325 MG PO DAILY, TAB 04/13/22 Gabapentin (Neurontin) 300 Mg Capsule, 300 MG PO BID, CAP 04/12/22 Past Medical History Past Medical History: Diabetes-Type II, High Cholesterol, Heart Disease, Hypertension Past Surgical History: Cholecystectomy, Other Surgical History Other: RT FOOT Social History Social History: Other ROS Dictation CONSTITUTIONAL: Negative except for HPI HEAD/FACE: Negative except for HPI EENT: Negative except for HPI RESPIRATORY: Negative except for HPI GASTROINTESTINAL/ABDOMINAL: Negative except for HPI GENITOURINARY: Negative except for HPI MUSCULOSKELETAL: Negative except for HPI INTEGUMENTARY: Negative except for HPI NEUROLOGICAL/PSYCH: Negative except for HPI HEMATOLOGIC/LYMPHATIC: Negative except for HPI All Systems Negative, Except as noted above. 13 point review of systems assessed and all negative except for above. Physical Exam Physical Exam Dictation Vital Signs reviewed General Appearance: Alert, oriented x 3, no acute distress, chronically ill- appearing Head and Face: non-traumatic. Eyes: PERRL, pink conjunctivas, eyelid no trauma, anterior chamber with arcus senilis. Ears: Pinnas intact and no signs of trauma or erythema ear canals clear and no discharge TM no erythema Nose: No discharge, no bleeding. Oropharynx: Mouth normal, tongue pink, pharynx clear,no erythema, tonsils no exudates, no abscesses noted, mucous membrane moist Neck: Supple, non-tender, no thyromegaly, no masses, no JVD, no bruits Breast:Deferred Chest:No tenderness, no crepitus, no paradoxical movement, no retractions Lungs:Clear, well-ventilated, symmetric, no rales, no wheezing, no rhonchi, no stridor, good breath sounds bilaterally Heart: Regular rate, regular rhythm, no murmur, no gallops Vascular: 2+ pitting edema to left lower extremity Abdomen: Soft, positive bowel sounds, nondistended, no guarding, nontender, no rebound, no masses no hepatomegaly, no splenomegaly, no Chaves's sign, no hernias. Rectal: Deferred Genital: Deferred Neurological: Normal speech, motor function intact, sensory function intact Musculoskeletal: Neck nontender, full range of motion, back nontender, full range of motion, Extremities: nontender, full range of motion Skin: There was an open wound to the plantar aspect of the left great toe Lymphatic: Deferred Results Laboratory and Microbiology Lab and Micro Result Laboratory Tests Test 01/08/25 11:11 White Blood Count 10.0 K/uL (4.8-10.8) Red Blood Count 2.93 MIL/uL (4.50-6.20) L Hemoglobin 8.4 g/dL (14.0-18.0) L Hematocrit 27.3 % (42-54) L Mean Corpuscular Volume 93.2 fL (79-99) Mean Corpuscular Hemoglobin 28.7 pg (27.0-33.0) Mean Corpuscular Hemoglobin Concent 30.8 g/dL (32.0-36.0) L Red Cell Distribution Width 17.4 % (11.0-15.5) H Platelet Count 274 K/uL (130-400) Mean Platelet Volume 9.7 fL (7.5-10.5) Immature Granulocyte % (Auto) 0.9 % (0-1) Neutrophils (%) (Auto) 72.4 % (40.0-77.0) Lymphocytes (%) (Auto) 13.2 % (21.0-51.0) L Monocytes (%) (Auto) 9.1 % (3.0-13.0) Eosinophils (%) (Auto) 4.0 % (0.0-8.0) Basophils (%) (Auto) 0.4 % (0.0-5.0) Neutrophils # (Auto) 7.2 K/uL (1.8-7.7) Lymphocytes # (Auto) 1.3 K/uL (1.0-4.8) Monocytes # (Auto) 0.9 K/uL (0.1-1.0) Eosinophils # (Auto) 0.40 K/uL (0.00-0.70) Basophils # (Auto) 0.04 K/uL (0.00-0.20) Absolute Immature Granulocyte (auto 0.09 K/uL (0-1) Nucleated Red Blood Cells 0.0 % (0.0-0.19) Red Blood Cell Morphology See comments Erythrocyte Sedimentation Rate 68 MM/HR (0-20) H Sodium Level 141 mmol/L (136-145) Potassium Level 3.6 mmol/L (3.5-5.1) Chloride Level 102 mmol/L (101-111) Carbon Dioxide Level 33 mmol/L (21-32) H Blood Urea Nitrogen 45 mg/dL (7-18) H Creatinine 1.5 mg/dL (0.5-1.3) H Glomerular Filtration Rate Calc 49 mL/min (>90) Random Glucose 158 mg/dL (70-105) H Lactic Acid Level 1.8 mmol/L (0.8-2.5) Total Calcium 8.9 mg/dL (8.5-10.1) Labs Reviewed?: Yes MDM MDM: The patient is a 74-year-old male with a past medical history of type 2 diabetes and hypertension presenting to the emergency department with left lower extremity swelling and a wound to his left great toe. The patient was at his primary care doctor's office today for a routine follow up and was referred to [facility] emergency department after he was found with an open wound to the plantar aspect of his left great toe. Patient denies any other symptoms at this time. On physical examination the patient has an open wound to the plantar aspect of the left great toe. The wound appears to be superficial. There is no bone exposure. X-ray does not reveal any definitive osteomyelitis changes. His CBC shows no leukocytosis. The patient was evaluated by my attending Dr. Montes who does not believe the patient was osteomyelitis. He advised starting him on antibiotics and discharging home. The patient was given one dose of Rocephin in the emergency department and will be discharged home with Bactrim. Differential diagnosis: Osteomyelitis, ulcer, cellulitis There are no social concerns with this patient. Prescription drug management Prescriptions will include: Bactrim Medical management and examination interpretation discussions were had by me with other qualified healthcare professionals as indicated for the patient's care. ED Course Orders Procedure Category Date Status Time Cbc With Differential LAB 01/08/25 Complete 10:33 Basic Metabolic Panel LAB 01/08/25 Complete 10:33 Erythrocyte LAB 01/08/25 Complete Sedimentation Rate 10:33 Lactic Acid LAB 01/08/25 Complete 10:33 Toe(S) 2+Vws Lt RAD 01/08/25 Resulted 10:33 Us Venous Doppler US 01/08/25 Resulted Unilateral 10:33 Vital Signs Date Time Temp Pulse Resp B/P (MAP) Pulse Ox O2 Delivery O2 Flow Rate FiO2 01/08/25 10:54 82 16 183/81 100 Room Air* 0 21 01/08/25 10:27 98.1 87 18 137/69 97 Room Air [place] [address] [address] IMAGING REPORT Signed PATIENT: MARY JAY MR#: [id number] : 1950 SEX: M AGE: 74 LOCATION: [facility] ORDER [id number] STATUS: REG ER [facility] REPORT#: [id number] SERVICE 1033 REASON: LLE Swelling ORDERING PHYSICIAN: CHERRY BRENNAN PROCEDURE: VENOUS UNI - US VENOUS DOPPLER UNILATERAL US VENOUS DOPPLER UNILATERAL HISTORY: Left lower extremity swelling COMPARISON: None TECHNIQUE: Left lower extremity venous Doppler ultrasound study was performed. FINDINGS: The left common femoral, femoral, popliteal, and posterior tibial veins are visualized. Normal flow with augmentation and compressibilities are demonstrated. Left greater saphenous vein is patent IMPRESSION: 1. No evidence of deep venous thrombosis is seen. DICTATED BY: AVA BOATENG MD DATE: 01/08/25 115 ELECTRONICALLY SIGNED BY: AVA BOATENG MD DATE: 01/08/[address] [address] IMAGING REPORT Signed PATIENT: MARY JAY MR#: [id number] : 1950 SEX: M AGE: 74 LOCATION: [facility] ORDER [id number] STATUS: REG ER REPORT#: [id number] SERVICE 1033 REASON: r/o osteo ORDERING PHYSICIAN: CHERRY BRENNAN PROCEDURE: TOES LT - TOE(S) 2+VWS LT TOE(S) 2+VWS LT HISTORY: Osteomyelitis COMPARISON: 01/08/2025 TECHNIQUE: 3 images of left toes were obtained. FINDINGS: There is no acute displaced fracture or dislocation. There is soft tissue swelling. Evaluation for osteomyelitis is limited with radiographs. Osteomyelitis of great toe cannot be excluded. Vascular calcifications are seen. Degenerative changes are seen. IMPRESSION: 1. Findings as described above. DICTATED BY: AVA BOATENG MD DATE: 01/08/25 1209 ELECTRONICALLY SIGNED BY: AVA BOATENG MD DATE: 01/08/25 1214 DX & DISP Disposition: Discharge Departure Impression: Primary Impression: Skin ulcer of left great toe Condition: Stable Scripts Sulfamethoxazole/Trimethoprim (Bactrim Ds Tablet) 800 Mg-160 Mg Tablet 1 TAB PO BID for 7 Days, #14 TAB 0 Refills Prov: CHERRY BRENNAN 01/08/25 Additional Instructions: Your x-ray does not show any definitive changes of osteomyelitis. Your CBC shows a normal white blood cell count. Your left toe wound does not track into the bone. You were given antibiotics in the emergency department. I have also given you a prescription for oral antibiotics for outpatient management. You will need to see a director of child welfare services. Your ultrasound does not show any evidence of a blood clot. Referrals: QUANG CHO MD (PCP) RENAN KELLER DPM Time of Disposition: 13:28 I have reviewed the case, and I agree with, Diagnosis and Plan I performed the substantive portion of the visit. I have reviewed and personally made and approve the management plan that is documented in the note by myself or the MILENA. I acknowledge for responsibility for the patient's management plan. CHERRY BRENNAN January 08, 2025 10:45
[2025-01-08 11:21] LABS: BASOPHILS # (AUTO) 0.04 K/uL (0.00-0.20); BASOPHILS % (AUTO) 0.4 % (0.0-5.0); HEMATOCRIT 27.3 % (42-54); IMMATURE GRANULOCYTE ABSOLUTE 0.09 K/uL (0-1); LYMPHOCYTES # (AUTO) 1.3 K/uL (1.0-4.8); LYMPHOCYTES % (AUTO) 13.2 % (21.0-51.0); MEAN CORPUSCULAR HEMOGLOBIN 28.7 pg (27.0-33.0); MEAN CORPUSCULAR HGB CONC 30.8 g/dL (32.0-36.0); MEAN CORPUSCULAR VOLUME 93.2 fL (79-99); MONOCYTES # (AUTO) 0.9 K/uL (0.1-1.0); MONOCYTES % (AUTO) 9.1 % (3.0-13.0); NEUTROPHILS # (AUTO) 7.2 K/uL (1.8-7.7); NEUTROPHILS % (AUTO) 72.4 % (40.0-77.0); PLATELET COUNT (AUTO) 274 K/uL (130-400); RED BLOOD CELL COUNT(AUTO) 2.93 MIL/uL (4.50-6.20); RED CELL DISTRIBUTION WIDTH 17.4 % (11.0-15.5)
[2025-01-08 11:30] LABS: CREATININE 1.5 mg/dL (0.5-1.3); POTASSIUM 3.6 mmol/L (3.5-5.1)
--- NOTE | 2025-01-08 11:55 | HMCIMG ---
US VENOUS DOPPLER UNILATERAL HISTORY: Left lower extremity swelling COMPARISON: None TECHNIQUE: Left lower extremity venous Doppler ultrasound study was performed. FINDINGS: The left common femoral, femoral, popliteal, and posterior tibial veins are visualized. Normal flow with augmentation and compressibilities are demonstrated. Left greater saphenous vein is patent IMPRESSION: 1. No evidence of deep venous thrombosis is seen.
--- NOTE | 2025-01-08 12:14 | HMCIMG ---
TOE(S) 2+VWS LT HISTORY: Osteomyelitis COMPARISON: 01/08/2025 TECHNIQUE: 3 images of left toes were obtained. FINDINGS: There is no acute displaced fracture or dislocation. There is soft tissue swelling. Evaluation for osteomyelitis is limited with radiographs. Osteomyelitis of great toe cannot be excluded. Vascular calcifications are seen. Degenerative changes are seen. IMPRESSION: 1. Findings as described above.
[2025-01-08 12:35] LABS: ERYTHROCYTE SEDIMENTATION RATE 68 MM/HR (0-20)
[2025-01-08] MEDS ORDERED: SULF1TAB42 PO (13:38)
[2025-01-08] MEDS: cefTRIAXone 1G VIAL IVPB ONE (14:05)
[2025-01-08 15:20] VITALS: BP 158/71; PULSE 91; RESP 18; TEMP 98; O2SAT 97
== END 2025-01-08 15:43 | disposition home or self-care (01) ==
LOC: EDH 10:26
DX: E11.622 Type 2 diabetes mellitus with other skin ulcer (principal); L97.529 Non-pressure chronic ulcer of other part of left foot with unspecified severity; E78.00 Pure hypercholesterolemia, unspecified; I11.9 Hypertensive heart disease without heart failure; Z79.4 Long term (current) use of insulin; Z79.82 Long term (current) use of aspirin; Z79.899 Other long term (current) drug therapy; Z90.49 Acquired absence of other specified parts of digestive tract; Z98.890 Other specified postprocedural states
CPT/HCPCS: 99285; 96374; 93971; 80048; 85025; 85651; 83605; 36415; 73660; J0696

== ENCOUNTER → 2025-01-11 | Outpatient (CLI) | payer OTHER ==
[~2025-01-11] MED LIST changes: +SULF1TAB42 PO
--- NOTE | 2025-01-11 14:05 | HMCSR ---
APPROVED REPORT EXAM: Two-dimensional and M-mode echocardiogram with Doppler and color Doppler. INDICATION ICD: E78.5 2D Dimensions RVDd3.6 cmLVEF(%)72.0 (>50%)LVED Vol(simp.)72.0 mL IVSd1.0 (0.7-1.1cm)FS(%)41 %LVES Vol(simp.)21.0 mL LVDd3.9 (3.8-5.6cm)LA (2D)3.7 (1.6-4.0cm)LVEF(%, simp.)71 % PWd1.1 (0.7-1.1cm)Ao Root(2D)3.5 (2.0-3.7cm)LA ESV INDEX (BP)24.98 mL/m2 IVSs1.4 cmLVOT diam1.9 (1.8-2.4cm) LVDs2.3 (2.5-4.0cm) PWs1.4 cm M-Mode Dimensions EPSS0.4 cm LA (MM)4.2 (1.6-4.0cm) Ao Root(MM)4.2 (2.0-3.7cm) Aortic Valve AoV Vmax1.8 m/Sonia Peak GR12.3 mmHgLVOT Vmax1.0 m/s AoV VTI0.4 mAo Mean GR6.8 mmHgLVOT VTI0.21 m PHU (VMAX)1.63 cm2AVA (VTI) 1.6 cm2 Mitral Valve MV E Ghwg579.6 cm/sDECEL Hhea618 ms MV A Dqcj174.6 cm/sP 1/2 T69 ms E/A ratio1.0MVA (PHT)3.2 cm2 TDI E/E' Hqpnmr47.3E/E' Isaadaf17.6 Medial E' Peak V5.21 cm/sLateral E' Peak V5.38 cm/s Pulmonary Valve PV Vmax1.1 m/sPV VTI0.23 mPV Mean GR3.0 mmHg PV Peak GR4.9 mmHg Left Ventricle The left ventricle is normal size. There is normal left ventricular wall thickness. LVEF is 55-60%. S tage II, diastolic dysfunction. Right Ventricle The right ventricle is normal size. The right ventricular systolic function is normal. Atria The left atrium size is normal. The right atrium size is normal. Aortic Valve Aortic valve is trileaflet, mildly thickened and sclerotic and opens well. No aortic regurgitation is present. There is no aortic valvular stenosis. Mitral Valve The mitral valve is normal in structure. There is no mitral valve regurgitation noted. There is no mi tral valve stenosis. Tricuspid Valve The tricuspid valve is normal in structure. There is trace of tricuspid valve regurgitation noted. Pulmonic Valve The pulmonary valve is normal in structure. There is no pulmonic valvular regurgitation. Great Vessels The aortic root is normal in size. The IVC is normal in size and collapses >50% with inspiration. Pericardium There is no pericardial effusion. Other Information Quality : Adequate Conclusion LVEF is 55-60%. Stage II, diastolic dysfunction. Aortic valve is trileaflet, mildly thickened and sclerotic and opens well.
== END | disposition home or self-care (01) ==
LOC: RAH 13:07
PROVIDERS: ATTEND Family Medicine
DX: I35.1 Nonrheumatic aortic (valve) insufficiency (principal); E78.5 Hyperlipidemia, unspecified
CPT/HCPCS: 93306